=== PATIENT | male | born 1960 | race Caucasian/White ===

== ENCOUNTER 2017-10-06 19:59 | Observation (INO) | payer OTHER ==
[2017-10-06] MEDS ORDERED: Nitroglycerin 2% Ointment 1 INCH/1 GM Packet ONE (20:17)
[2017-10-06 20:19] LABS: #Basophils 0.1 thou/uL (0.0-0.2); #Eosinphils 0.1 thou/uL (0.0-0.7); #Lymphocytes 2.7 thou/uL (1.20-3.40); #Monocytes 0.5 thou/uL (0.11-0.59); #Neutrophils 3.7 thou/uL (1.40-6.50); %Basophils 1.7 % (0.0-1.0); %Eosinophils 1.4 % (0.0-10.0); %Lymphocytes 37.5 % (21.0-51.0); %Monocytes 7.4 % (0.0-10.0); %Neutrophils 52.1 % (42.0-75.0); Hemoglobin 14.7 g/dL (14.0-18.0); Mean Corpuscular HGB CONC 36.4 g/dL (32.0-36.0); Mean Corpuscular Volume 90.6 fl (80.0-94.0); Mean Platelet Volume 7.4 fL (7.4-10.4); Platelet Count 205 thou/uL (130-400); RBC Distribution Width 11.8 % (11.5-14.5); Red Blood Cell (RBC) Count 4.46 mill/uL (4.70-6.10); White Blood Cell (WBC) Count 7.1 thou/uL (4.8-10.8)
[2017-10-06 20:35] LABS: ALT (SGPT) 30 U/L (8-55); AST (SGOT) 31 U/L (5-34); Albumin 3.8 g/dL (3.5-5.0); Alkaline Phosphatase 86 U/L (40-150); Anion Gap 16 mmol/L (10-20); BUN (Urea Nitrogen) 16 mg/dL (8.4-25.7); Bilirubin, Total 0.7 mg/dL (0.2-1.2); CK (CPK) 298 U/L (30-200); Calc. Creatinine Clearance 0 mL/min (70-130); Calcium 8.4 mg/dL (7.8-10.44); Carbon Dioxide 21 mmol/L (22-29); Chloride 107 mmol/L (98-107); Estimated GFR-MDRD 69; Globulin 2.4 g/dL (2.4-3.5); Glucose 197 mg/dL (70-105); Lipase 83 U/L (8-78); Protein, Total 6.2 g/dL (6.0-8.3); Sodium 141 mmol/L (136-145)
[2017-10-06 20:36] LABS: CKMB 2.9 ng/mL (0-6.6); Troponin I Less than 0.010 ng/mL (< 0.028)
[2017-10-06 20:40] LABS: Potassium 2.8 mmol/L (3.5-5.1)
[2017-10-06] MEDS ORDERED: Potassium Chloride 20 MEQ TAB ONE (20:47)
--- NOTE | 2017-10-06 20:52 | RAD ---
CHEST ONE VIEW 10/06/17 HISTORY: Chest pain. COMPARISON: None. FINDINGS: Lungs are slightly hypoinflated. No focal air space consolidation, pneumothorax or effusion. IMPRESSION: No acute intrathoracic abnormality. POS: [facility]
[2017-10-06 23:20] LABS: Troponin I 0.016 ng/mL (< 0.028)
[2017-10-07] MEDS ORDERED: Ondansetron HCl/PF 4 MG/2 ML Vial IVP PRN (00:51)
[2017-10-07] MEDS ORDERED: Ondansetron ODT 4 MG TAB SL PRN (00:51)
[2017-10-07 01:01] VITALS: BMI 26.6
[2017-10-07] MEDS ORDERED: Acetaminophen 325 MG TAB PO PRN ×2 (01:11→04:33)
[2017-10-07 03:04] LABS: Troponin I Less than 0.010 ng/mL (< 0.028)
[2017-10-07] MEDS ORDERED: Dextrose 5% in Water 1,000 ML IV PRN (04:33)
[2017-10-07] MEDS ORDERED: Guaifenesin DM 100-10/5 ML UDCUP PO PRN (04:33)
[2017-10-07] MEDS ORDERED: HumaLOG 300 UNITS/3 ML VIAL SC PRN (04:33)
[2017-10-07] MEDS ORDERED: Dextrose 50% Abboject 50 ML SYRINGE SLOW IVP PRN (04:33)
[2017-10-07] MEDS ORDERED: Potassium Chloride 20 MEQ TAB PO SCH (04:45)
[2017-10-07 05:17] LABS: Cardiac Risk 3.9 (Less than 4.5)
[2017-10-07 05:34] LABS: Hemoglobin A1c 5.3 % (4.0-6.0)
[2017-10-07] MEDS: Potassium Chloride 20 MEQ TAB PO SCH ×2 (05:35→12:03)
[2017-10-07 05:43] LABS: Amphetamine Not Detected (NotDetected); Barbiturates Screen Not Detected (NotDetected); Benzodiazepine Screen Not Detected (NotDetected); Cocaine Metabolite Screen Not Detected (NotDetected); Medtox Control Line Valid? VALID (VALID); Medtox Reader # READER 1; Methadone Not Detected (NotDetected); Methamphetamine Not Detected (NotDetected); Opiate Screen Not Detected (NotDetected); Oxycodone Screen Not Detected (NotDetected); Phencyclidine (PCP) Not Detected (NotDetected); THC/Cannabinoid Screen Detected (NotDetected); Tricyclic Screen Not Detected (NotDetected)
[2017-10-07] MEDS ORDERED: Nitroglycerin 2% Ointment 1 INCH/1 GM Packet TOP SCH (06:00)
--- NOTE | 2017-10-07 07:32 | HP ---
REASON FOR ADMISSION: Chest pain. HISTORY OF PRESENTING ILLNESS: The patient gives history of trying out his son' s marijuana, which he had kept aside from before. This he did around 7:00 p.m. The patient started to feel anxious and panicky. Soon his heart rate climbed up and he started to have chest pressure. This pressure sensation was radiating to the neck. He describes that his son had similar issue and he had almost passed out a few days back and wanted to check what it was. The patient is not a regular marijuana user. Currently, his chest pressure is eased up. No complaints of palpitations or fever at present. No cough or expectoration. He states he has had stress test done on 07/07/2016 at [facility], which was normal. PAST MEDICAL AND SURGICAL HISTORY: History of Crohn's disease, diagnosed 25 years ago. He has had two surgeries for the same at 40 cm of his small intestine removed in 1992 and has had a smaller amount removed in 1996, hypertension. CURRENT MEDICATIONS: Lisinopril 20 mg daily, hydrochlorothiazide 12.5 mg daily , Flomax 0.4 mg extended release daily. ALLERGIES: No known drug allergies. PERSONAL HISTORY: He drinks 1-2 beers on alternate days. Does not abuse drugs except for last night. No history of smoking. FAMILY HISTORY: He lives with his . Mother is healthy and living. Father at the age of 65 years, he was suspected to have massive OR and he is obese as well. REVIEW OF SYSTEMS: The following complete review of systems was negative, unless otherwise mentioned in the HPI or below: Constitutional: Weight loss or gain, ability to conduct usual activities. Skin: Rash, itching. Eyes: Double vision, pain. ENT/Mouth: Nose bleeding, neck stiffness, pain, tenderness. Cardiovascular: Palpitations, dyspnea on exertion, orthopnea. Respiratory: Shortness of breath, wheezing, cough, hemoptysis, fever or night sweats. Gastrointestinal: Poor appetite, abdominal pain, heartburn, nausea, vomiting, constipation, or diarrhea. Genitourinary: Urgency, frequency, dysuria, nocturia. Musculoskeletal: Pain, swelling. Neurologic/Psychiatric: Anxiety, depression. Allergy/Immunologic: Skin rash, bleeding tendency. PHYSICAL EXAMINATION: GENERAL: The patient is a 57-year-old male, who is currently not in any acute distress. VITAL SIGNS: Blood pressure 110/64, pulse 60 per minute, respiratory rate 18 per minute, temperature 98.2 degrees Fahrenheit, saturating 92% on room air. NECK: Supple, no elevated JVD. HEENT: Eyes: Extraocular muscles intact. Pupils are reacting to light. Oral cavity, mucous membranes are moist. No exudates or congestion. CARDIOVASCULAR SYSTEM: S1, S2 heard. Regular rhythm. RESPIRATORY SYSTEM: Air entry 2+ bilateral. No rales or rhonchi. ABDOMEN: Soft, bowel sounds heard. No tenderness, rigidity or guarding. EXTREMITIES: No peripheral edema or calf tenderness. VASCULAR SYSTEM: Peripheral pulses 2+ bilateral, no ischemic ulcerations or gangrene. CENTRAL NERVOUS SYSTEM: No gross focal deficits seen. The patient is alert, awake, oriented well. PSYCHIATRIC SYSTEM: The patient's mood is euthymic. No hallucinations or delusions. LABORATORY AND X-RAY FINDINGS: EKG done shows sinus tachycardia at 124 beats per minute. There is ST depression seen in V2-V6. Potassium is 2.8, serum bicarbonate 21, BUN 16, creatinine 1.1. White count of 7, H&H 14 and 40, platelet count 205, MCV is 90 with 52% neutrophils. Serum glucose 197. CK level is 298. CK-MB 2.9. Troponin x2 is negative. Lipase is 83, albumin 3.8. Chest x-ray done shows no acute cardiopulmonary abnormalities. CLINICAL IMPRESSION AND PLAN: The patient will be under observation on telemetry for chest pain after using likely marijuana laced with possible other drugs. We will obtain a urine drug screen. His two sets of cardiac enzymes were negative. The patient had an initial EKG, which showed ST depression in anterolateral leads. His potassium was also low at around 2. He was given 60 mEq of p.o. potassium at around 9:00 p.m. yesterday. We will give him 3 more doses of potassium and obtain a repeat metabolic panel around 3:00 p.m. We will also obtain a 12-lead EKG around the same time and if his EKG changes have resolved, he will be discharged home. If patient were to have ST depressions even after potassium replacement with normalizing electrolytes and a stress test done in 06/2016, then he will be kept n.p.o. for Cardiology consultation for possible catheterization. Echo with 2D Doppler for wall motion will be obtained as well in view of EKG changes seen. We will continue his Flomax and finasteride along with full dose aspirin. We will obtain hemoglobin A1c in view of serum glucose of 170 on arrival. We will continue to closely monitor him on telemetry. KAUSHIK
[2017-10-07] MEDS: Famotidine 20 MG TAB PO SCH ×2 (08:25→20:25)
[2017-10-07] MEDS: Finasteride 5 MG TAB PO SCH (08:25)
[2017-10-07] MEDS: Aspirin 325 MG TAB PO SCH (08:25)
[2017-10-07] MEDS: Tamsulosin HCl 0.4 MG CAP PO SCH (08:25)
[2017-10-07] MEDS: Lisinopril 20 MG TAB PO SCH (08:25)
[2017-10-07] MEDS ORDERED: Aspirin 325 mg Enteric Coated Tablet PO SCH (09:00)
[2017-10-07] MEDS ORDERED: Nitroglycerin 0.4 MG TAB (25 Tab Bottle) PO PRN (09:13)
[2017-10-07 11:04] LABS: Potassium 3.6 mmol/L (3.5-5.1)
--- NOTE | 2017-10-07 15:22 | PDOC.EVN ---
Event Note - Event Note Event Note: Chart reviewed, pt seen. Replace potassium. Last stress test more than a year ago, order stress test.
[2017-10-08 05:27] LABS: #Eosinphils 0.1 thou/uL (0.0-0.7); #Lymphocytes 1.7 thou/uL (1.20-3.40); #Monocytes 0.4 thou/uL (0.11-0.59); #Neutrophils 3.3 thou/uL (1.40-6.50); %Basophils 0.8 % (0.0-1.0); %Eosinophils 2.4 % (0.0-10.0); %Lymphocytes 30.6 % (21.0-51.0); %Monocytes 7.5 % (0.0-10.0); %Neutrophils 58.7 % (42.0-75.0); Hemoglobin 13.1 g/dL (14.0-18.0); Mean Corpuscular HGB CONC 33.5 g/dL (32.0-36.0); Mean Corpuscular Hemoglobin 32.1 pg (27.0-31.0); Mean Platelet Volume 6.9 fL (7.4-10.4); Platelet Count 177 thou/uL (130-400); RBC Distribution Width 12.9 % (11.5-14.5); Red Blood Cell (RBC) Count 4.08 mill/uL (4.70-6.10); White Blood Cell (WBC) Count 5.7 thou/uL (4.8-10.8)
[2017-10-08 05:34] LABS: Anion Gap 8 mmol/L (10-20); BUN (Urea Nitrogen) 13 mg/dL (8.4-25.7); Calc. Creatinine Clearance 155 mL/min (70-130); Calcium 8.2 mg/dL (7.8-10.44); Carbon Dioxide 26 mmol/L (22-29); Chloride 111 mmol/L (98-107); Estimated GFR-MDRD Greater than 90; Glucose 96 mg/dL (70-105); Potassium 3.8 mmol/L (3.5-5.1); Sodium 141 mmol/L (136-145)
[2017-10-08 13:07] VITALS: TEMP 98.7
[2017-10-08] MEDS: Lisinopril 20 MG TAB PO SCH (13:10)
[2017-10-08] MEDS: Famotidine 20 MG TAB PO SCH (13:10)
[2017-10-08] MEDS: Finasteride 5 MG TAB PO SCH (13:10)
[2017-10-08] MEDS: Tamsulosin HCl 0.4 MG CAP PO SCH (13:10)
[2017-10-08] MEDS: Aspirin 325 MG TAB PO SCH (13:11)
[2017-10-08 13:12] VITALS: BP 137/90
--- NOTE | 2017-10-08 14:43 | NM ---
MYOCARDIAL PERFUSION AND QUANTITATIVE GATED SPECT STUDY: HISTORY: Chest pain. DOSE: Technetium 99m Cardiolite, 27 millicuries for the stress portion of the exam and 32 millicuries for r esting portion of the exam. FINDINGS: The patient was stressed using a Attila protocol. The patient had a peak heart rate of 155 beats per minute with a targeted heart rate of 140. Myocardial perfusion and quantitative gated SPECT images were obtained. Myocardial perfusion is unremarkable. No evidence of myocardial ischemia or scar seen. No evidence of reperfuseable areas seen. No evidence of perfusion abnormalities seen on stress or resting images . Ejection fraction measures 54%. IMPRESSION: Normal myocardial perfusion and quantitative gated SPECT study. POS: [facility]
--- NOTE | 2017-10-09 01:49 | DIS ---
DATE OF ADMISSION: 10/07/2017 DATE OF DISCHARGE: 10/08/2017 DISCHARGE DIAGNOSES: 1. Chest pain, noncardiac. Acute coronary syndrome ruled out. 2. History of hypertension. 3. History of Crohn's disease under care of Dr. Brown at [facility]. PRIMARY CARE PHYSICIAN: Lew Jo MD at [facility]. DISCHARGE MEDICATIONS: Remain the same as the home medications. Tamsulosin 0.4 mg daily, lisinopril 20 mg, hydrochlorothiazide 12.5 mg daily, finasteride 5 mg daily. CONDITION AT THE TIME OF DISCHARGE: Stable and improved. PROCEDURES IN THE HOSPITAL. Nuclear medicine stress test, which shows EF of 54% and normal myocardia l perfusion scan. HISTORY OF PRESENT ILLNESS: Mr. Weston is a very pleasant 57-year-old male with past medical history of hypertension, Crohn's disease who presented to the emergency room with complaints of chest pain w ith palpitations with pain radiating to his neck and almost passing out. Upon presentation, he was h emodynamically stable with a blood pressure of 110/61, heart rate of 60. Chest x-ray was unremarkabl e. Cardiac enzymes were negative. CK-MB was slightly elevated at 298. He was admitted for further evaluation. EKG showed sinus tachycardia and some questionable ST depression in the anterolateral le ads. His potassium was found to be low at 2.8. He had potassium replacement done and was admitted f or further workup on telemetry unit. Please see admission history and physical for further details. HOSPITAL COURSE: The patient remained hemodynamically stable throughout the rest of his hospitalizat ion. His potassium level improved from 2.8 to 3.8 with supplementation. Lipid panel showed triglyce rides at 166, otherwise unremarkable. Cardiac enzymes were trended and were negative. He underwent a nuclear medicine stress test, which was also negative for an acute ischemia or scar. He was walking in the hallways. He was seen and examined this morning and is feeling very well and i s asymptomatic. PHYSICAL EXAMINATION: This morning include, VITAL SIGNS: Temperature 98.7, pulse of 74, respirations 16, saturating 94% on room air, blood press ure 137/92. GENERAL: No acute distress, awake, alert, oriented x3. CHEST: Clear to auscultation without any wheezing, rales, or rhonchi. Rate and rhythm are regular w ithout any murmurs or gallops. ABDOMEN: Soft, nontender, nondistended. Positive bowel sounds. At this time, acute coronary syndrome has been ruled out and the patient is hemodynamically stable. He is instructed to discuss the daily supplementation with potassium with his primary care physician as he is on hydrochlorothiazide. No prescriptions were provided at this time, as his potassium level is within normal limit after recent supplementation. He is instructed to follow with PCP within the next 5-7 days and he verbalized understanding. No medication changes were made.
== END 2017-10-08 15:47 | disposition home or self-care (01) ==
LOC: SCSER 19:59 → 2SW 22:15
PROVIDERS: ADMIT Internal Medicine; ATTEND Internal Medicine
DX: R07.89 Other chest pain (principal); I10 Essential (primary) hypertension; K50.90 Crohn's disease, unspecified, without complications; Z79.899 Other long term (current) drug therapy; Z90.49 Acquired absence of other specified parts of digestive tract
CPT/HCPCS: 36415; 36416; 71045; 78452; 80048; 80053; 80061; 80306; 82553; 83036; 83690; 84484; 85025; 93005; 93017; 94760; 96360; A9500; G0378